=== PATIENT | male | born 1985 | race Caucasian/White ===

== ENCOUNTER 2017-02-13 10:13 | Emergency (ER) | payer OTHER ==
[~2017-02-13] VITALS: Ht 180.3 cm; Wt 98.3 kg
[~2017-02-13 10:13] MED LIST: LRT5 PO
[2017-02-13 10:20] VITALS: TEMP 36.5; Ht 180.3 cm; Wt 98.3 kg
[2017-02-13] MEDS ORDERED: XYLOCAINE 1%/SOD BICARB 20 ML VIAL INFIL ONE (11:15)
--- NOTE | 2017-02-13 11:15 | EMERGENCY ROOM VISIT NOTE ---
ED Visit Note First contact with patient: 11:05 CHIEF COMPLAINT: Finger laceration HISTORY OF PRESENT ILLNESS: This 31-year-old male patient presents to the emergency department after cutting the tip of his right middle finger at 10am today. Patient states he was picking up a large rock to put into a wheelbarrow and was dropped the rock, smashing it between a rock and the wheelbarrow. The bleeding has stopped. Denies weakness or numbness of the finger. The patient rates the pain as throbbing and 8/10. The patient denies any other injuries. The patient's Tetanus shot is not up to date. REVIEW OF SYSTEMS: A 6 system review of systems was completed with positives and pertinent negatives listed in the HPI. ALLERGIES: See chart MEDICATIONS: See chart PMH: See chart SOCIAL HISTORY: See chart PHYSICAL EXAM: Vital Signs: Reviewed Nurse's notes, vital signs stable. GENERAL : Pleasant and cooperative, in no acute distress, well-developed, well- nourished. SKIN: There is a superficial dermal skin flap of the finger pad of the right third finger, does not extend in the subcutaneous tissue, nonperfused. The flap is approximately 4 cm in length. The flap is easily lifted up off of the skin, with well perfused tissue underneath. There is no foreign material in the wound and it looks clean. There is no bleeding. No deep structures such as tendons, bones, or significant blood vessels are seen in the base of the wound. Normal strength and movement of the finger with distal flexion and extension intact. Capillary refill less than 2 seconds. Normal sensation to light and sharp touch. EMERGENCY DEPARTMENT COURSE: I examined the patient. Verbal consent was obtained to perform the procedure. Using sterile technique the wound was cleansed with Betadine. The area was sterilely draped. 3 ml of 1% buffered lidocaine was used to perform a digital block at the base of the right third finger for anesthesia. Once the finger was adequately anesthetized, the skin flap was lifted with forceps to reveal well perfused tissue underneath. The wound was copiously irrigated under pressure with sterile saline. The wound was explored and was as described above with no foreign body. The skin flap is not likely to heal back to the finger due to it's thinness, but was left in place to cover the exposed tissue underneath. The patient was advised that the skin flap may eventually necrose and fall off, he verbalized understanding. The flap was secured down with steri strips and there was no active bleeding. The patient tolerated the procedure well. The finger was wrapped in a sterile dressing, and a finger splint was applied to facilitate healing of the wound. He was instructed to follow up with his PCP. The patient was given Tdap immunization. The patient was discharged home in good condition. Current/Historical Medications No Active Prescriptions or Reported Meds Allergies Coded Allergies: No Known Allergies (Unverified , PT DENIES ANY DRUG ALLERGIES, 02/13/17) Vital Signs Date Time Temp Pulse Resp B/P (MAP) Pulse Ox O2 Delivery O2 Flow Rate FiO2 02/13/17 13:25 59 115/66 97 Room Air 02/13/17 11:53 64 18 141/63 99 Room Air 02/13/17 10:20 36.5 78 16 120/65 98 Room Air Medications Administered Medications (Trade) Dose Ordered Sig/Ange Route Start Time Stop Time Status Last Admin Dose Admin Diphtheria/ Pertussis/Tetanus Vacc (Adacel Inj) 0.5 ml ONCE ONCE IM. 02/13/17 13:30 02/13/17 13:31 DC 02/13/17 13:30 0.5 ML Departure Information Impression Primary Impression: Avulsion of skin of middle finger without complication Dispostion Home / Self-Care Condition GOOD Prescriptions No Active Prescriptions or Reported Meds Referrals No Doctor, Assigned (PCP) Patient Instructions ED Avulsion Dermal, My [facility] Additional Instructions Keep wound clean and dry. Do not get the steri strips wet, as this will cause them to fall off early. They should fall off naturally in the next 3-5 days. Once the steri strips have fallen off, you may clean the wound with soap and water. Keep dry and leave open to air. Ice and elevate for swelling and pain. Ibuprofen 600 mg and Tylenol 1000 mg every 6-8 hrs as needed for pain. Keep covered when in sun until sutures removed then SPF 50 or higher for one year. Vitamin E oil if desired two weeks after suture removal for reduction of scar. Follow-up with your PCP as needed. Please seek immediate medical attention for any signs of infection (increasing redness, swelling, pus drainage, streaking up the arm, fever/chills). Problem Qualifiers Primary Impression: Avulsion of skin of middle finger without complication Encounter type: initial encounter Qualified Codes: S61.208A - Unspecified open wound of other finger without damage to nail, initial encounter
--- NOTE | 2017-02-13 11:16 | DIAGNOSTIC IMAGING REPORT ---
RIGHT HAND MIN 3 VIEWS ROUTINE CLINICAL HISTORY: rule out fx; attention to right middle finger Right trauma COMPARISON: None. DISCUSSION: The bones and joint spaces appear intact. There is no evidence of fracture, dislocation or bony disease. There is no evidence for soft tissue swelling. IMPRESSION: Negative study. Electronically signed by: Kailash Yi M.D. 02/13/2017 11:15 AM Dictated Date/Time: 02/13/2017 11:15 AM
[2017-02-13 13:25] VITALS: BP 115/66; PULSE 59; O2SAT 97
[2017-02-13] MEDS ORDERED: DIPHTHERIA/TETANUS/PERTUSSIS 0.5 ML SYR/VIAL IM. ONE (13:30)
== END 2017-02-13 13:42 | disposition home or self-care (01) ==
LOC: C.EDB 10:15 → C.EDD 13:42
DX: S61.212A Laceration without foreign body of right middle finger without damage to nail, initial encounter (principal); W23.0XXA Caught, crushed, jammed, or pinched between moving objects, initial encounter; Z23 Encounter for immunization